=== PATIENT | female | born 1975 | race Caucasian/White ===

== ENCOUNTER 2023-06-16 12:09 | Inpatient (IN) | payer OTHER ==
[2023-06-16 12:43] VITALS: BMI 26.7
[2023-06-16] MEDS ORDERED: LOPERAMIDE HCL 2 MG CAPSULE PO PRN (13:58)
[2023-06-16] MEDS ORDERED: IBUPROFEN 400 MG TABLET (FP) PO PRN (13:58)
[2023-06-16] MEDS ORDERED: POLYETHYLENE GLYCOL (HEALTHYLAX) 3350 17 GM PACKET PO PRN (13:58)
[2023-06-16] MEDS ORDERED: BENZONATATE 200 MG CAPSULE PO PRN (13:58)
[2023-06-16] MEDS ORDERED: BENZOCAINE/MENTHOL (CHLORASEPTIC ) LOZENGE MM PRN (13:58)
[2023-06-16] MEDS ORDERED: NALOXONE HCL (KLOXXADO) 8 MG SPRAY NS PRN (13:58)
[2023-06-16] MEDS ORDERED: MAGNESIUM HYDROX 2400MG/30ML ORAL SUSPENSION 30 ML CUP PO PRN (13:58)
[2023-06-16] MEDS ORDERED: ACETAMINOPHEN 325 MG TABLET (FP) PO PRN (13:58)
[2023-06-16] MEDS ORDERED: NALOXONE HCL 0.4 MG/ML VIAL IM PRN (13:58)
[2023-06-16] MEDS ORDERED: BISMUTH SUBSALICYLATE 524 MG/30 ML PO PRN (13:58)
[2023-06-16] MEDS ORDERED: guaiFENesin 600 MG TABLET.ER (FP) PO PRN (13:58)
[2023-06-16] MEDS ORDERED: DICYCLOMINE HCL 10 MG CAPSULE PO PRN (13:58)
[2023-06-16] MEDS ORDERED: IBUPROFEN 600 MG TABLET (FP) PO PRN (13:58)
[2023-06-16] MEDS ORDERED: ONDANSETRON *ODT* 4 MG TABLET ONE (14:05)
[2023-06-16] MEDS ORDERED: LORazepam 1 MG TABLET ONE (14:06)
[2023-06-16] MEDS: PRENATAL VITAMINS W/ FOLIC ACID TABLET (FP) PO SCH (14:13)
[2023-06-16] MEDS: ONDANSETRON *ODT* 4 MG TABLET SL PRN (14:14)
[2023-06-16] MEDS: LORazepam 1 MG TABLET PO PRN (14:14)
[2023-06-16] MEDS: LORazepam 2 MG TABLET PO SCH (17:59)
[2023-06-16] MEDS: THIAMINE HCL 100 MG TABLET (FP) PO SCH (22:31)
[2023-06-16] MEDS: MELATONIN 5 MG TABLETS PO SCH (22:31)
[2023-06-17] MEDS: METHOCARBAMOL 500 MG TABLET PO PRN (10:15)
[2023-06-17 12:30] LABS: HEMATOCRIT 43.2 % (32.4-45.2); HEMOGLOBIN 14.7 GM/dL (10.7-15.3); MCH 33.8 pg (25.7-33.7); MCHC 33.9 g/dl (32.0-36.0); MEAN CELL VOLUME 99.6 fl (80-96); MEAN PLT VOLUME 7.4 fl (7.5-11.1); PLATELET COUNT 285 10^3/uL (134-434); RBC 4.34 M/mm3 (3.60-5.2); RDW 14.2 % (11.6-15.6); WHITE BLOOD COUNT 7.9 K/mm3 (4.0-10.0)
[2023-06-17 12:39] LABS: CALCIUM 9.7 mg/dL (8.5-10.1); CHLORIDE 99 mmol/L (98-107); POTASSIUM 4.5 mmol/L (3.5-5.1); SODIUM 140 mmol/L (136-145)
[2023-06-17 12:40] LABS: ANION GAP 6 mmol/L (4-13); BLOOD UREA NITROGEN 21.8 mg/dL (7-18); CO2 35 mmol/L (21-32); GLUCOSE,RANDOM 115 mg/dL (74-106)
[2023-06-17 12:42] LABS: CREATININE 0.7 mg/dL (0.55-1.3); SGOT/AST 45 U/L (15-37); SGPT/ALT 38 U/L (13-61)
[2023-06-17 12:44] LABS: ALK PHOS 118 U/L (45-117); BILIRUBIN,TOTAL 1.2 mg/dL (0.2-1); TOT PROT 7.8 g/dl (6.4-8.2)
[2023-06-17] MEDS: NALTREXONE HCL 50 MG TABLET PO SCH (15:25)
[2023-06-17] MEDS ORDERED: NICOTINE POLACRILEX 4 MG GUM BUC PRN (20:07)
[2023-06-18] MEDS: LORazepam 1 MG TABLET PO SCH (05:22)
[2023-06-18] MEDS: hydrOXYzine PAMOATE 25 MG CAPSULE (FP) PO PRN (05:23)
[2023-06-18] MEDS: MAG HYDROX/AL HYDROX/SIMETH 30 ML UNIT-DOSE CUP PO PRN (10:09)
[2023-06-18] MEDS: ONDANSETRON *ODT* 4 MG TABLET SL ONE (14:01)
[2023-06-19] MEDS: LORazepam 0.5 MG TABLET PO PRN (00:45)
[2023-06-19] MEDS: LORazepam 0.5 MG TABLET PO SCH (05:37)
[2023-06-19] MEDS: METHOCARBAMOL 750 MG TABLET PO SCH (13:33)
[2023-06-19] MEDS: METHOCARBAMOL 500 MG TABLET PO SCH (18:46)
[2023-06-19 21:35] VITALS: RESP 16
[2023-06-20] MEDS: LORazepam 0.5 MG TABLET PO ONE (05:39)
[2023-06-20 06:46] VITALS: BP 103/89; PULSE 111; TEMP 97.8
== END 2023-06-20 09:30 | disposition home or self-care (01) | DRG 775 ==
LOC: YASAS 12:09 → Y6N 14:16
PROVIDERS: ADMIT Allergy & Immunology; ATTEND Surgery
PROC: HZ2ZZZZ Detoxification Services for Substance Abuse Treatment (ICD-10-PCS; principal; 2023-06-15)
DX: F10.230 Alcohol dependence with withdrawal, uncomplicated (principal); F12.20 Cannabis dependence, uncomplicated; F17.210 Nicotine dependence, cigarettes, uncomplicated; F10.280 Alcohol dependence with alcohol-induced anxiety disorder; F10.282 Alcohol dependence with alcohol-induced sleep disorder
CPT/HCPCS: 36415; 80053; 80305; 80307; 81025; 83036; 85027; 86780; 87635; 93005; 93010; Q0162

== ENCOUNTER 2023-07-31 17:59 | Inpatient (IN) | payer OTHER ==
[2023-07-31 18:33] VITALS: BMI 26.7
[2023-07-31] MEDS ORDERED: chlordiazePOXIDE HCL 25 MG CAPSULE PO PRN (19:06)
[2023-07-31] MEDS ORDERED: POLYETHYLENE GLYCOL (HEALTHYLAX) 3350 17 GM PACKET PO PRN (19:14)
[2023-07-31] MEDS ORDERED: BENZONATATE 200 MG CAPSULE PO PRN (19:14)
[2023-07-31] MEDS ORDERED: ONDANSETRON *ODT* 4 MG TABLET SL PRN (19:14)
[2023-07-31] MEDS ORDERED: guaiFENesin 600 MG TABLET.ER (FP) PO PRN (19:14)
[2023-07-31] MEDS ORDERED: NICOTINE POLACRILEX 2 MG GUM BUC PRN (19:14)
[2023-07-31] MEDS ORDERED: MAGNESIUM HYDROX 2400MG/30ML ORAL SUSPENSION 30 ML CUP PO PRN (19:14)
[2023-07-31] MEDS ORDERED: NICOTINE POLACRILEX 2 MG LOZENGE BC PRN (19:14)
[2023-07-31] MEDS ORDERED: BISMUTH SUBSALICYLATE 524 MG/30 ML PO PRN (19:14)
[2023-07-31] MEDS ORDERED: BENZOCAINE/MENTHOL (CHLORASEPTIC ) LOZENGE MM PRN (19:14)
[2023-07-31] MEDS ORDERED: ACETAMINOPHEN 325 MG TABLET (FP) PO PRN (19:14)
[2023-07-31] MEDS ORDERED: LOPERAMIDE HCL 2 MG CAPSULE PO PRN (19:14)
[2023-07-31] MEDS ORDERED: DICYCLOMINE HCL 10 MG CAPSULE PO PRN (19:14)
[2023-07-31] MEDS ORDERED: chlordiazePOXIDE HCL 25 MG CAPSULE ONE (19:23)
[2023-07-31] MEDS ORDERED: TRIMETHOBENZAMIDE HCL 200MG/2ML INJ IM ONE (19:40)
[2023-07-31] MEDS: TRIMETHOBENZAMIDE HCL 200MG/2ML INJ IM ONE (19:50)
[2023-07-31] MEDS: chlordiazePOXIDE HCL 25 MG CAPSULE PO ONE (20:06)
[2023-07-31] MEDS: MAG HYDROX/AL HYDROX/SIMETH 30 ML UNIT-DOSE CUP PO PRN (21:02)
[2023-07-31] MEDS: METOPROLOL TARTRATE 25 MG TABLET (FP) PO ONE (22:18)
[2023-07-31] MEDS: THIAMINE 100 MG TABLET PO SCH (22:18)
[2023-07-31] MEDS: MELATONIN 5 MG TABLETS PO SCH (22:18)
[2023-07-31] MEDS: chlordiazePOXIDE HCL 25 MG CAPSULE PO SCH (22:18)
[2023-08-01] MEDS: PRENATAL VITAMINS W/ FOLIC ACID TABLET (FP) PO SCH (10:23)
[2023-08-01] MEDS: IBUPROFEN 400 MG TABLET (FP) PO PRN (10:25)
[2023-08-01] MEDS: IBUPROFEN 600 MG TABLET (FP) PO PRN (17:50)
[2023-08-01 21:01] VITALS: RESP 17
[2023-08-01] MEDS: METHOCARBAMOL 500 MG TABLET PO PRN (22:31)
[2023-08-01] MEDS: hydrOXYzine PAMOATE 25 MG CAPSULE (FP) PO PRN (22:31)
[2023-08-02] MEDS: chlordiazePOXIDE HCL 25 MG CAPSULE PO SCH (05:45)
[2023-08-02 10:50] VITALS: BP 108/83; PULSE 84; TEMP 98.7
[2023-08-03] MEDS ORDERED: chlordiazePOXIDE HCL 10 MG CAPSULE PO PRN
[2023-08-03] MEDS ORDERED: chlordiazePOXIDE HCL 10 MG CAPSULE PO SCH (05:00)
[2023-08-04] MEDS ORDERED: chlordiazePOXIDE HCL 10 MG CAPSULE PO SCH (05:00)
[2023-08-05] MEDS ORDERED: chlordiazePOXIDE HCL 10 MG CAPSULE PO ONE (05:00)
== END 2023-08-02 09:43 | disposition left against medical advice (07) | DRG 770 ==
LOC: YASAS 17:59 → Y6N 19:21
PROVIDERS: ADMIT Allergy & Immunology; ATTEND Surgery
PROC: HZ2ZZZZ Detoxification Services for Substance Abuse Treatment (ICD-10-PCS; principal; 2023-07-31)
DX: F10.230 Alcohol dependence with withdrawal, uncomplicated (principal); F14.20 Cocaine dependence, uncomplicated; F17.213 Nicotine dependence, cigarettes, with withdrawal; Z28.310 Unvaccinated for COVID-19; Z28.9 Immunization not carried out for unspecified reason
CPT/HCPCS: 80305; 80307; 93005; 93010

== ENCOUNTER 2023-08-16 18:11 | Inpatient (IN) | payer OTHER ==
[2023-08-16 18:55] VITALS: BMI 28.5
[2023-08-16] MEDS ORDERED: LOPERAMIDE HCL 2 MG CAPSULE PO PRN (19:13)
[2023-08-16] MEDS ORDERED: MAG HYDROX/AL HYDROX/SIMETH 30 ML UNIT-DOSE CUP PO PRN (19:13)
[2023-08-16] MEDS ORDERED: NICOTINE POLACRILEX 2 MG GUM BUC PRN (19:13)
[2023-08-16] MEDS ORDERED: IBUPROFEN 400 MG TABLET (FP) PO PRN (19:13)
[2023-08-16] MEDS ORDERED: ONDANSETRON *ODT* 4 MG TABLET SL PRN (19:13)
[2023-08-16] MEDS ORDERED: POLYETHYLENE GLYCOL (HEALTHYLAX) 3350 17 GM PACKET PO PRN (19:13)
[2023-08-16] MEDS ORDERED: BISMUTH SUBSALICYLATE 524 MG/30 ML PO PRN (19:13)
[2023-08-16] MEDS ORDERED: DICYCLOMINE HCL 10 MG CAPSULE PO PRN (19:13)
[2023-08-16] MEDS ORDERED: hydrOXYzine PAMOATE 25 MG CAPSULE (FP) PO ONE (19:40)
[2023-08-16] MEDS ORDERED: chlordiazePOXIDE HCL 25 MG CAPSULE ONE (19:40)
[2023-08-16] MEDS: hydrOXYzine PAMOATE 25 MG CAPSULE (FP) PO PRN (19:47)
[2023-08-16] MEDS: chlordiazePOXIDE HCL 25 MG CAPSULE PO ONE (19:47)
[2023-08-16] MEDS ORDERED: IBUPROFEN 600 MG TABLET (FP) PO ONE (20:09)
[2023-08-16] MEDS: IBUPROFEN 600 MG TABLET (FP) PO PRN (20:10)
[2023-08-16] MEDS: THIAMINE 100 MG TABLET PO SCH (22:08)
[2023-08-16] MEDS: MELATONIN 5 MG TABLETS PO SCH (22:08)
[2023-08-16] MEDS: METHOCARBAMOL 500 MG TABLET PO PRN (22:09)
[2023-08-16] MEDS: chlordiazePOXIDE HCL 25 MG CAPSULE PO SCH (22:10)
[2023-08-17] MEDS: chlordiazePOXIDE HCL 25 MG CAPSULE PO PRN (03:23)
[2023-08-17] MEDS: PRENATAL VITAMINS W/ FOLIC ACID TABLET (FP) PO SCH (10:04)
[2023-08-17 11:57] LABS: HEMOGLOBIN 13.4 GM/dL (10.7-15.3); MCH 33.8 pg (25.7-33.7); MCHC 35.4 g/dl (32.0-36.0); MEAN CELL VOLUME 95.4 fl (80-96); MEAN PLT VOLUME 7.9 fl (7.5-11.1); PLATELET COUNT 212 10^3/uL (134-434); RBC 3.98 M/mm3 (3.60-5.2); RDW 13.1 % (11.6-15.6); WHITE BLOOD COUNT 4.7 K/mm3 (4.0-10.0)
[2023-08-17 12:45] LABS: POTASSIUM 4.5 mmol/L (3.5-5.1)
[2023-08-17 12:47] LABS: ALBUMIN 3.6 g/dl (3.4-5.0); BLOOD UREA NITROGEN 17.2 mg/dL (7-18); CALCIUM 9.6 mg/dL (8.5-10.1)
[2023-08-17 12:50] LABS: CREATININE 0.8 mg/dL (0.55-1.3)
[2023-08-17 12:52] LABS: BILIRUBIN,TOTAL 0.3 mg/dL (0.2-1); TOT PROT 6.7 g/dl (6.4-8.2)
[2023-08-17] MEDS: ACETAMINOPHEN 325 MG TABLET (FP) PO PRN (17:26)
[2023-08-18] MEDS: chlordiazePOXIDE HCL 25 MG CAPSULE PO SCH (05:41)
[2023-08-18] MEDS: guaiFENesin 600 MG TABLET.ER (FP) PO PRN (14:38)
[2023-08-18] MEDS: BENZONATATE 200 MG CAPSULE PO PRN (22:21)
[2023-08-19] MEDS ORDERED: chlordiazePOXIDE HCL 10 MG CAPSULE PO PRN
[2023-08-19] MEDS: chlordiazePOXIDE HCL 10 MG CAPSULE PO SCH (05:22)
[2023-08-20] MEDS: BENZOCAINE/MENTHOL (CHLORASEPTIC ) LOZENGE MM PRN (04:37)
[2023-08-20] MEDS: guaiFENesin 600 MG TABLET.ER (FP) PO PRN (05:18)
[2023-08-20] MEDS: chlordiazePOXIDE HCL 10 MG CAPSULE PO SCH (05:19)
[2023-08-20] MEDS: P-EPHED 60MG/TRIPROLIDI 2.5MG TABLET PO PRN (10:04)
[2023-08-21] MEDS: chlordiazePOXIDE HCL 10 MG CAPSULE PO ONE (05:22)
[2023-08-22] MEDS: MAGNESIUM HYDROX 2400MG/30ML ORAL SUSPENSION 30 ML CUP PO PRN (07:07)
[2023-08-22 09:10] VITALS: BP 120/77; PULSE 76; RESP 18; TEMP 96.9
== END 2023-08-22 11:10 | disposition other institution (70) | DRG 775 ==
LOC: YASAS 18:11 → Y3N 20:11
PROVIDERS: ADMIT Allergy & Immunology; ATTEND Surgery
PROC: HZ2ZZZZ Detoxification Services for Substance Abuse Treatment (ICD-10-PCS; principal; 2023-08-16)
DX: F10.230 Alcohol dependence with withdrawal, uncomplicated (principal); F12.20 Cannabis dependence, uncomplicated; F17.210 Nicotine dependence, cigarettes, uncomplicated; F19.280 Other psychoactive substance dependence with psychoactive substance-induced anxiety disorder
CPT/HCPCS: 36415; 71046-TC-FY; 80053; 80305; 80307; 81025; 85027; 86780; 93005; 93010

== ENCOUNTER 2023-08-22 11:12 | Inpatient (IN) | payer OTHER ==
[2023-08-22] MEDS ORDERED: BENZONATATE 200 MG CAPSULE PO PRN (13:59)
[2023-08-22] MEDS ORDERED: NALOXONE HCL 0.4 MG/ML VIAL IM PRN (13:59)
[2023-08-22] MEDS ORDERED: ACETAMINOPHEN 325 MG TABLET (FP) PO PRN (13:59)
[2023-08-22] MEDS ORDERED: LOPERAMIDE HCL 2 MG CAPSULE PO PRN (13:59)
[2023-08-22] MEDS ORDERED: NALOXONE HCL (KLOXXADO) 8 MG SPRAY NS PRN (13:59)
[2023-08-22] MEDS ORDERED: IBUPROFEN 400 MG TABLET (FP) PO PRN (13:59)
[2023-08-22] MEDS ORDERED: BENZOCAINE/MENTHOL (CHLORASEPTIC ) LOZENGE MM PRN (13:59)
[2023-08-22 17:42] LABS: EPI CELLS 17 /uL (0-25.1); HYALINE CASTS 1 /uL (0-3.1); PH,URINE 7.5 (5.0-8.0); URINE APPEARANCE CLOUDY; URINE BACTERIA 408 /uL (0-1359); URINE BILIRUBIN NEGATIVE (NEGATIVE); URINE COLOR YELLOW; URINE GLUCOSE (UA) NEGATIVE (NEGATIVE); URINE KETONE NEGATIVE (NEGATIVE); URINE LEUK ESTERASE 3+ (NEGATIVE); URINE NITRITE NEGATIVE (NEGATIVE); URINE PROTEIN NEGATIVE (NEGATIVE); URINE RBC 7 /uL (0-23.9); URINE UROBILINOGEN 0.2 mg/dL (0.2-1.0); URINE WBC 244 /uL (0-25.8)
[2023-08-22] MEDS: THIAMINE 100 MG TABLET PO SCH (22:20)
[2023-08-22] MEDS: MELATONIN 5 MG TABLETS PO SCH (22:20)
[2023-08-22] MEDS: hydrOXYzine PAMOATE 25 MG CAPSULE (FP) PO PRN (22:21)
[2023-08-23] MEDS: guaiFENesin 600 MG TABLET.ER (FP) PO PRN (06:17)
[2023-08-23] MEDS: PRENATAL VITAMINS W/ FOLIC ACID TABLET (FP) PO SCH (09:17)
[2023-08-23] MEDS: MAG HYDROX/AL HYDROX/SIMETH 30 ML UNIT-DOSE CUP PO PRN (10:41)
[2023-08-23 11:07] LABS: HEMATOCRIT 37.8 % (32.4-45.2); HEMOGLOBIN 13.5 GM/dL (10.7-15.3); MCH 33.7 pg (25.7-33.7); MCHC 35.6 g/dl (32.0-36.0); MEAN CELL VOLUME 94.4 fl (80-96); MEAN PLT VOLUME 8.1 fl (7.5-11.1); PLATELET COUNT 253 10^3/uL (134-434); RDW 12.5 % (11.6-15.6); WHITE BLOOD COUNT 7.4 K/mm3 (4.0-10.0)
[2023-08-23 11:08] LABS: CHLORIDE 105 mmol/L (98-107); POTASSIUM 4.2 mmol/L (3.5-5.1); SODIUM 137 mmol/L (136-145)
[2023-08-23 11:15] LABS: ALBUMIN 3.8 g/dl (3.4-5.0)
[2023-08-23 11:16] LABS: ANION GAP 6 mmol/L (4-13); BLOOD UREA NITROGEN 14.1 mg/dL (7-18); CO2 27 mmol/L (21-32); GLUCOSE,RANDOM 123 mg/dL (74-106)
[2023-08-23 11:19] LABS: CREATININE 0.8 mg/dL (0.55-1.3); SGOT/AST 20 U/L (15-37); SGPT/ALT 26 U/L (13-61)
[2023-08-23 11:20] LABS: BILIRUBIN,TOTAL 0.5 mg/dL (0.2-1); TOT PROT 7.2 g/dl (6.4-8.2)
[2023-08-23 11:22] LABS: ALK PHOS 107 U/L (45-117)
[2023-08-23 11:36] LABS: SYPHILIS W/ RPR CONF NON-REACTIVE (NONREACTIVE)
[2023-08-23] MEDS: METHOCARBAMOL 500 MG TABLET PO SCH (15:34)
[2023-08-23] MEDS: POLYETHYLENE GLYCOL (HEALTHYLAX) 3350 17 GM PACKET PO PRN (15:35)
[2023-08-24] MEDS: hydrOXYzine PAMOATE 25 MG CAPSULE (FP) PO PRN (22:17)
[2023-08-27 11:55] LABS: INR 0.99 (0.83-1.09); PROTHROMBIN TIME (PATIENT) 11.2 SEC (9.7-13.0)
[2023-08-27] MEDS: METHOCARBAMOL 750 MG TABLET PO SCH (21:46)
[2023-08-28] MEDS: MAGNESIUM HYDROX 2400MG/30ML ORAL SUSPENSION 30 ML CUP PO PRN (14:18)
[2023-08-29] MEDS: IBUPROFEN 600 MG TABLET (FP) PO PRN (13:33)
[2023-08-29] MEDS: METHOCARBAMOL 500 MG TABLET PO ONE (22:16)
[2023-08-30] MEDS: METHOCARBAMOL 500 MG TABLET PO SCH (06:08)
[2023-08-31] MEDS: DOCUSATE SODIUM 100 MG CAPSULE (FP) PO SCH (21:38)
[2023-09-02 06:48] VITALS: BP 140/91; PULSE 67; RESP 18; TEMP 97.2
== END 2023-09-02 09:05 | disposition home or self-care (01) | DRG 772 ==
LOC: YASAS 11:12 → Y3NR 11:13 → Y5N 08-27 13:32
PROVIDERS: ADMIT Allergy & Immunology; ATTEND Psychiatry & Neurology Pain Medicine
PROC: HZ42ZZZ Group Counseling for Substance Abuse Treatment, Cognitive-Behavioral (ICD-10-PCS; principal; 2023-08-22)
DX: F10.20 Alcohol dependence, uncomplicated (principal); F12.20 Cannabis dependence, uncomplicated; F17.210 Nicotine dependence, cigarettes, uncomplicated; F19.282 Other psychoactive substance dependence with psychoactive substance-induced sleep disorder; F41.9 Anxiety disorder, unspecified; F32.A Depression, unspecified; Z99.89 Dependence on other enabling machines and devices
CPT/HCPCS: 36415; 80053; 80307; 81003; 82140; 83735; 85027; 85610; 86780; 86803; 87811; 93005; 93010

== ENCOUNTER 2024-01-21 09:45 | Inpatient (IN) | payer OTHER ==
[2024-01-21 10:27] VITALS: BMI 26.1
[2024-01-21] MEDS ORDERED: BENZOCAINE/MENTHOL (CHLORASEPTIC ) LOZENGE MM PRN (10:59)
[2024-01-21] MEDS ORDERED: IBUPROFEN 600 MG TABLET (FP) PO PRN (10:59)
[2024-01-21] MEDS ORDERED: BENZONATATE 200 MG CAPSULE PO PRN (10:59)
[2024-01-21] MEDS ORDERED: IBUPROFEN 400 MG TABLET (FP) PO PRN (10:59)
[2024-01-21] MEDS ORDERED: LOPERAMIDE HCL 2 MG CAPSULE PO PRN (10:59)
[2024-01-21] MEDS ORDERED: guaiFENesin 600 MG TABLET.ER (FP) PO PRN (10:59)
[2024-01-21] MEDS ORDERED: DICYCLOMINE HCL 10 MG CAPSULE PO PRN (10:59)
[2024-01-21] MEDS ORDERED: POLYETHYLENE GLYCOL (HEALTHYLAX) 3350 17 GM PACKET PO PRN (10:59)
[2024-01-21] MEDS ORDERED: NALOXONE (NYS OPIOID OVERDOSE PROGRAM) 4 MG/0.1 ML SPRAY NS PRN (10:59)
[2024-01-21] MEDS ORDERED: MAGNESIUM HYDROX 2400MG/30ML ORAL SUSPENSION 30 ML CUP PO PRN (10:59)
[2024-01-21] MEDS ORDERED: BISMUTH SUBSALICYLATE 262 MG/15 ML BTL PO PRN (10:59)
[2024-01-21] MEDS ORDERED: NALOXONE (NARCAN) HCL 4 MG/0.1 ML SPRAY NS PRN (10:59)
[2024-01-21] MEDS ORDERED: NICOTINE 14 MG/24 HOURS TOPICAL PATCH TD ONE (11:26)
[2024-01-21] MEDS ORDERED: PRENATAL VITAMINS W/ FOLIC ACID TABLET (FP) PO ONE (11:26)
[2024-01-21] MEDS: PRENATAL VITAMINS W/ FOLIC ACID TABLET (FP) PO SCH (11:29)
[2024-01-21] MEDS: NICOTINE 14 MG/24 HOURS TOPICAL PATCH TD SCH (11:29)
[2024-01-21] MEDS: hydrOXYzine PAMOATE 25 MG CAPSULE (FP) PO PRN (12:09)
[2024-01-21] MEDS: MAG HYDROX/AL HYDROX/SIMETH 30 ML UNIT-DOSE CUP PO PRN (13:03)
[2024-01-21] MEDS: ONDANSETRON *ODT* 4 MG TABLET SL PRN (13:04)
[2024-01-21] MEDS: chlordiazePOXIDE HCL 25 MG CAPSULE PO PRN (15:25)
[2024-01-21] MEDS: chlordiazePOXIDE HCL 25 MG CAPSULE PO SCH (17:26)
[2024-01-21] MEDS: ACETAMINOPHEN 325 MG TABLET (FP) PO PRN (17:26)
[2024-01-21 18:54] LABS: HIV INTERPRETATION NEGATIVE (NEGATIVE)
[2024-01-21] MEDS: traZODone HCL 50 MG TABLET (FP) PO SCH (22:17)
[2024-01-21] MEDS: METHOCARBAMOL 500 MG TABLET PO PRN (22:17)
[2024-01-21] MEDS: MELATONIN 5 MG TABLETS PO SCH (22:17)
[2024-01-21] MEDS: THIAMINE 100 MG TABLET PO SCH (22:17)
[2024-01-22 17:43] LABS: HEMATOCRIT 44.8 % (32.4-45.2); HEMOGLOBIN 15.3 GM/dL (10.7-15.3); MCH 32.1 pg (25.7-33.7); MCHC 34.2 g/dl (32.0-36.0); MEAN PLT VOLUME 7.8 fl (7.5-11.1); PLATELET COUNT 278 10^3/uL (134-434); RBC 4.77 M/mm3 (3.60-5.2); RDW 14.4 % (11.6-15.6); WHITE BLOOD COUNT 9.2 K/mm3 (4.0-10.0)
[2024-01-22 17:44] LABS: POTASSIUM 4.3 mmol/L (3.5-5.1)
[2024-01-22 17:55] LABS: ALBUMIN 4.4 g/dl (3.4-5.0); BLOOD UREA NITROGEN 16.2 mg/dL (7-18); CALCIUM 10.4 mg/dL (8.5-10.1)
[2024-01-22 17:58] LABS: CREATININE 0.8 mg/dL (0.55-1.3)
[2024-01-22 18:00] LABS: BILIRUBIN,TOTAL 1.2 mg/dL (0.2-1); TOT PROT 8.1 g/dl (6.4-8.2)
[2024-01-23] MEDS: chlordiazePOXIDE HCL 25 MG CAPSULE PO SCH (05:40)
[2024-01-24] MEDS ORDERED: chlordiazePOXIDE HCL 10 MG CAPSULE PO PRN
[2024-01-24] MEDS: chlordiazePOXIDE HCL 10 MG CAPSULE PO SCH (05:40)
[2024-01-24 08:59] VITALS: BP 113/71; PULSE 61; RESP 20; TEMP 97.9
[2024-01-24] MEDS: NALTREXONE HCL 50 MG TABLET PO SCH (09:07)
[2024-01-25] MEDS ORDERED: chlordiazePOXIDE HCL 10 MG CAPSULE PO SCH (05:00)
[2024-01-26] MEDS ORDERED: chlordiazePOXIDE HCL 10 MG CAPSULE PO ONE (05:00)
== END 2024-01-24 09:57 | disposition home or self-care (01) | DRG 775 ==
LOC: YASAS 09:45 → Y3N 11:24
PROVIDERS: ADMIT Allergy & Immunology; ATTEND Surgery
PROC: HZ2ZZZZ Detoxification Services for Substance Abuse Treatment (ICD-10-PCS; principal; 2024-01-21)
DX: F10.230 Alcohol dependence with withdrawal, uncomplicated (principal); F12.20 Cannabis dependence, uncomplicated; F17.210 Nicotine dependence, cigarettes, uncomplicated; F10.24 Alcohol dependence with alcohol-induced mood disorder; F41.9 Anxiety disorder, unspecified; F32.A Depression, unspecified
CPT/HCPCS: 36415; 80053; 80305; 80307; 81025; 82140; 85027; 86780; 87389; 93005; 93010; Q0162